=== PATIENT | male | born 1945 | race Caucasian/White ===

== ENCOUNTER 2021-12-13 01:01 | Emergency (ER) | payer MEDICARE, BC ==
[2021-12-13] MEDS: Nitroglycerin 0.3 MG Tab.SL SL PRN ×3 (02:02→06:16)
[2021-12-13] MEDS ORDERED: Morphine 4 MG/ML VIAL IVPUSH ONE (02:31)
[2021-12-13] MEDS ORDERED: Morphine 4 MG/ML Syringe ONE (02:32)
[2021-12-13] MEDS ORDERED: Ondansetron 4 MG/2 ML SDV IVPUSH ONE ×2 (02:44→04:09)
[2021-12-13] MEDS ORDERED: Morphine 4 MG/ML Syringe IVPUSH ONE (04:09)
[2021-12-13] MEDS ORDERED: Aspirin 81 MG Tab.Chew PO ONE (04:09)
[2021-12-13] MEDS ORDERED: Alum Hydrox/Mag Hydrox/Simeth 30 ML, Lidocaine 2% 15 ML PO ONE ×2 (05:06)
[2021-12-13] MEDS ORDERED: Famotidine 20 MG/2 ML SDV IVPUSH ONE (05:07)
[2021-12-13] MEDS ORDERED: Sodium Chloride 0.9% 1,000 ML IV ONE (05:10)
[2021-12-13] MEDS ORDERED: Iopamidol 755 MG/ML 50 ML Bottle IVPUSH ONE (05:50)
[2021-12-13] MEDS ORDERED: Iopamidol 755 Mg/ML 100 ML Bottle IVPUSH ONE (05:50)
[2021-12-13] MEDS ORDERED: Sodium Chloride 0.9% 10 ML SDV FLUSH ONE (05:50)
[2021-12-13] MEDS ORDERED: Sodium Chloride 0.9% 100 ML IV SCH (06:00)
== END 2021-12-13 07:30 | disposition home or self-care (01) ==
LOC: JD.ED 01:01
DX: R07.89 Other chest pain (principal); I25.10 Atherosclerotic heart disease of native coronary artery without angina pectoris; E78.00 Pure hypercholesterolemia, unspecified; I10 Essential (primary) hypertension; E11.9 Type 2 diabetes mellitus without complications; E66.9 Obesity, unspecified; Z68.35 Body mass index [BMI] 35.0-35.9, adult; Z88.8 Allergy status to other drugs, medicaments and biological substances; Z79.82 Long term (current) use of aspirin; Z79.02 Long term (current) use of antithrombotics/antiplatelets; Z79.899 Other long term (current) drug therapy; Z87.891 Personal history of nicotine dependence; Z86.73 Personal history of transient ischemic attack (TIA), and cerebral infarction without residual deficits; Z20.822 Contact with and (suspected) exposure to COVID-19
CPT/HCPCS: 36415; 71045; 71260; 74177; 80053; 84484; 85025; 85379; 85610; 93005; 96374; 96375; 96376; 99285; A9270; J2270; J2405; J3490; J7030; Q9967; U0002; 93010; 99284

== ENCOUNTER 2022-01-28 13:23 | Emergency (ER) | payer MEDICARE, BC ==
[2022-01-28] MEDS ORDERED: Sodium Chloride 0.9% 10 ML Syringe FLUSH PRN (13:58)
[2022-01-28] MEDS ORDERED: Sodium Chloride 0.9% 1,000 ML IV SCH (14:00)
[2022-01-28] MEDS ORDERED: cefTRIAXone 2 GM in Sodium Chloride 0.9% 100 ML IV ONE (15:30)
[2022-01-28] MEDS ORDERED: Sodium Chloride 0.9% 1,000 ML IV ONE (16:35)
== END 2022-01-28 17:01 ==
LOC: JD.ED 13:23
DX: K81.9 Cholecystitis, unspecified (principal); D46.4 Refractory anemia, unspecified; R17 Unspecified jaundice; E80.6 Other disorders of bilirubin metabolism; I25.10 Atherosclerotic heart disease of native coronary artery without angina pectoris; E78.00 Pure hypercholesterolemia, unspecified; I10 Essential (primary) hypertension; E11.9 Type 2 diabetes mellitus without complications; E66.9 Obesity, unspecified; Z88.8 Allergy status to other drugs, medicaments and biological substances; Z86.73 Personal history of transient ischemic attack (TIA), and cerebral infarction without residual deficits; Z79.84 Long term (current) use of oral hypoglycemic drugs; Z79.82 Long term (current) use of aspirin; Z79.02 Long term (current) use of antithrombotics/antiplatelets; Z79.899 Other long term (current) drug therapy; Z95.5 Presence of coronary angioplasty implant and graft; Z68.35 Body mass index [BMI] 35.0-35.9, adult
CPT/HCPCS: 36415; 76705; 83605; 87040; 96365; 99285; J0696; J3490; J7030